=== PATIENT | female | born 1960 | race Hispanic/Latino ===

== ENCOUNTER 2017-10-12 18:30 | Emergency (ER) | payer BC, OTHER ==
[2017-10-12 19:47] LABS: Absolute Lymphocytes (CBC) 1.2 K/uL (0.7-4.9); Absolute Monocytes 0.4 K/uL (0.1-1.3); Basophils % 4.4 % (0-1.3); Eosinophils % 1.2 % (0-4.4); Hematocrit 36.9 % (36.0-45.0); Lymphocytes % 17.4 % (15.3-44.8); MCH 32.1 pg (27.0-35.0); MCV 94.1 fL (80-100); MPV 9.4 fL (7.6-11.3); Monocytes % 5.7 % (3.3-12.3); RBC Red Blood Cell Count 3.92 M/uL (3.86-4.86)
[2017-10-12 19:55] LABS: Potassium 3.2 mEq/L (3.6-5.0)
[2017-10-12 20:01] LABS: Albumin 4.5 g/dL (3.2-5.5); Bilirubin Direct 0.1 mg/dL (0-0.2); Bilirubin Total 0.5 mg/dL (0.3-1.2); Magnesium 1.9 mg/dL (1.8-2.5); Protein, Total 7.5 g/dL (6.0-8.3)
--- NOTE | 2017-10-12 20:13 | RAD REPORT ---
EXAM DESCRIPTION: RAD - Chest Single View - 10/12/2017 8:05 pm CLINICAL HISTORY: Chest pain COMPARISON: None. TECHNIQUE: AP portable chest image was obtained 2003 hours . FINDINGS: Lungs are clear. Heart and vasculature are normal. No measurable pleural effusion and no p neumothorax. No gross bony abnormality seen. No acute aortic findings suspected. IMPRESSION: No acute cardiopulmonary process.
[2017-10-12 21:17] LABS: Urine Blood TRACE (NEG); Urine Glucose NEGATIVE (NEG); Urine Protein NEGATIVE (NEG); Urine Specific Gravity 1.005 (1.005-1.030); Urine pH 5.5 (5.0-7.0)
[2017-10-12] MEDS ORDERED: FAMOTIDINE 20 MG/2 ML VIAL IV ONE (21:42)
--- NOTE | 2017-10-12 22:12 | ER ---
Nurse's Notes [facility] Name: Kim Mayfield Age: 57 yrs Sex: Female : 1960 Arrival Date: 10/12/2017 Time: 18:33 Bed 15 Private MD: out of town, doctor Diagnosis: Chest pain, unspecified Presentation: 10/12 18:39 Presenting complaint: Patient states: Sternal chest pain that started this AM, reports aj radiation to back and jaw. Took Aspirin 81 mg AGING ROOM HAND. Transition of care: patient was not received from another setting of care. Onset of symptoms was October 12, 2017. Care prior to arrival: None. 18:39 Method Of Arrival: Ambulatory aj 18:39 Acuity: FANY 3 aj 18:55 Initial Sepsis Screen: Does the patient meet any 2 criteria? No. Patient's initial hj sepsis screen is negative. Does the patient have a suspected source of infection? No. Patient's initial sepsis screen is negative. Triage Assessment: 18:40 General: Appears in no apparent distress. comfortable, Behavior is calm, cooperative, aj appropriate for age. Pain: Complains of pain in chest Pain radiates to back. Neuro: Level of Consciousness is awake, alert, obeys commands, Oriented to person, place, time, situation, Appropriate for age. Cardiovascular: Reports chest pain. Cardiovascular: Reports nausea, Capillary refill < 3 seconds in bilateral fingers Patient's skin is warm and dry. Respiratory: Airway is patent Respiratory effort is even, unlabored, Respiratory pattern is regular, symmetrical. GI: Reports nausea. Derm: Skin is intact, is healthy with good turgor, Skin is pink, warm \T\ dry. normal. 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 - Social history:: Smoking status: Patient uses tobacco products, denies chronic smoking, but will smoke occasionally. Screenin:55 Abuse screen: Denies threats or abuse. Denies injuries from another. Nutritional em screening: No deficits noted. Tuberculosis screening: No symptoms or risk factors identified. Fall Risk None identified. Assessment: 18:56 Pain: Pain began 1 day ago. hj 18:57 General: Appears in no apparent distress. uncomfortable, Behavior is calm, cooperative, hj appropriate for age. Pain: Complains of pain in chest. Pain: Pain radiates to back. Neuro: Level of Consciousness is awake, alert, obeys commands, Oriented to person, place, time, situation, Appropriate for age Cardiovascular: Chest pain. Respiratory: Airway is patent Respiratory effort is even, unlabored, Respiratory pattern is regular, symmetrical. GI: No signs and/or symptoms were reported involving the gastrointestinal system. : No signs and/or symptoms were reported regarding the genitourinary system. EENT: No signs and/or symptoms were reported regarding the EENT system. Derm: No signs and/or symptoms reported regarding the dermatologic system. Musculoskeletal: No signs and/or symptoms reported regarding the musculoskeletal system. 19:10 Reassessment: Report received from AKANKSHA Wilkins. bs1 19:10 General: Appears in no apparent distress. uncomfortable, Behavior is cooperative, bs1 anxious. Pain: Complains of pain in back and chest Pain radiates to back. Neuro: Level of Consciousness is awake, alert, obeys commands, Oriented to person, place, time, situation, Appropriate for age. Cardiovascular: Reports chest pain, Heart tones S1 S2 present Capillary refill < 3 seconds Patient's skin is warm and dry. Chest pain. Respiratory: Airway is patent Trachea midline Respiratory effort is even, unlabored, Respiratory pattern is regular, symmetrical, Breath sounds are clear bilaterally. GI: No signs and/or symptoms were reported involving the gastrointestinal system. Abdomen is round non-distended. : No signs and/or symptoms were reported regarding the genitourinary system. EENT: No signs and/or symptoms were reported regarding the EENT system. Derm: Skin is intact, Skin is pink, warm \T\ dry. Musculoskeletal: Circulation, motion, and sensation intact. Capillary refill < 3 seconds, Range of motion: intact in all extremities. 20:29 Reassessment: Patient appears in no apparent distress at this time. Patient and/or bs1 family updated on plan of care and expected duration. Pain level reassessed. Patient is alert, oriented x 3, equal unlabored respirations, skin warm/dry/pink. Patient appears anxious on pending results. Informed patient of POC, sending labs and that the Provider will come and talk to patient regarding results. 22:15 Reassessment: Patient appears in no apparent distress at this time. Patient and/or bs1 family updated on plan of care and expected duration. Pain level reassessed. Patient is alert, oriented x 3, equal unlabored respirations, skin warm/dry/pink. No reports of chest pain. Vital Signs: 18:40 BP 118 / 69; Pulse 80; Resp 16; Temp 98.1; Pulse Ox 98% on R/A; Weight 77.11 kg; Height aj 5 ft. 3 in. (160.02 cm); 19:40 BP 127 / 79; Pulse 72; Pulse Ox 99% on R/A; bs1 20:15 BP 119 / 70; Pulse 74; Resp 16; Pulse Ox 99% on R/A; Pain 0/10; bs1 21:15 BP 114 / 74; Pulse 69; Resp 20; Pulse Ox 99% on R/A; bs1 22:27 BP 108 / 68; Pulse 72; Resp 21 S; Temp 97.9(O); Pulse Ox 98% on R/A; Pain 0/10; bs1 18:40 Body Mass Index 30.11 (77.11 kg, 160.02 cm) ED Course: 18:33 Patient arrived in ED. mr 18:33 out of town, doctor is Private Physician. mr 18:40 Triage completed. aj 18:40 Arm band placed on right wrist. Patient placed in waiting room, Patient notified of wait time. 18:42 Franky Grande RN is Primary Nurse. hj 18:47 Carlos John PA is PHCP. jr8 18:47 Zen Ríos MD is Attending Physician. jr8 18:56 decorator lighting fixtures on. Pulse ox on. NIBP on. hj 18:56 Patient maintains SpO2 saturation greater than 95% on room air. hj 18:57 Patient has correct armband on for positive identification. Placed in gown. Bed in low hj position. Call light in reach. Side rails up X 1. Adult w/ patient. 19:18 Inserted saline lock: 20 gauge in right forearm, using aseptic technique. By eugenio Cardona1 Pablo. 19:21 Primary Nurse role handed off by HarjinderFranky allen RN rg2 19:31 Laura Welsh, RN is Primary Nurse. bs1 20:02 X-ray completed. Portable x-ray completed in exam room. Patient tolerated procedure kc2 well. 20:03 XRAY Chest (1 view) In Process Unspecified. EDMS 21:33 EKG done, by ED staff, reviewed by Carlos MONTERO repeat EKG. Repeat lab(s) drawn. by bs1 me, sent to lab. Repeat troponin. 22:26 No provider procedures requiring assistance completed. IV discontinued, bleeding bs1 controlled, No redness/swelling at site. Pressure dressing applied. Administered Medications: 21:47 Drug: Pepcid 20 mg Route: IVP; Site: right antecubital; ea 22:01 Follow up: Response: No adverse reaction bs1 Outcome: 22:11 Discharge ordered by . jr8 22:26 Discharged to home ambulatory, with significant other. bs1 22:26 Condition: stable 22:26 Discharge instructions given to patient, Instructed on discharge instructions, follow up and referral plans. medication usage, Demonstrated understanding of instructions, follow-up care, medications, Prescriptions given X 1, prescription for prednisone 20mg tab po daily for 5 days. 22:31 Patient left the ED. bs1 Signatures: Dispatcher [employer] EDMS Sailaja Tyson rg2 Darleen Ocasio RN RN aj Rivera, Maria Smart, Vernon, INSTRUCTOR OF EDUCATION INSTRUCTOR OF EDUCATION Carlos Hernandez PA PA jr8 Franky Grande, RN oJsi John kc2 Hina Moscoso RN RN ea Salazar, Brittany, AKANKSHA VALE bs1
--- NOTE | 2017-10-12 22:12 | EDPHYS ---
Physician Documentation [facility] Name: Kim Mayfield Age: 57 yrs Sex: Female : 1960 Arrival Date: 10/12/2017 Time: 18:33 Bed 15 Private MD: out of town, doctor ED Physician Zen Ríos HPI: 10/12 20:27 This 57 yrs old Female presents to ER via Ambulatory with complaints of Chest jr8 Pain. 20:27 The patient or guardian reports chest pain that is located primarily in the substernal jr8 area. Onset: acutely, this morning, today. The pain radiates to jaw, back. Associated signs and symptoms: The patient has no apparent associated signs or symptoms. The chest pain is described as burning. Duration: The patient or guardian reports a single episode. Modifying factors: The symptoms are alleviated by nothing. the symptoms are aggravated by nothing. Severity of pain: At its worst the pain was mild in the emergency department the pain is unchanged. The patient has not experienced similar symptoms in the past. The patient has not recently seen a physician. 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 - Social history:: Smoking status: Patient uses tobacco products, denies chronic smoking, but will smoke occasionally. ROS: 20:27 Eyes: Negative for injury, pain, redness, and discharge, ENT: Negative for injury, jr8 pain, and discharge, Neck: Negative for injury, pain, and swelling, Respiratory: Negative for shortness of breath, cough, wheezing, and pleuritic chest pain, Abdomen/GI: Negative for abdominal pain, nausea, vomiting, diarrhea, and constipation, Back: Negative for injury and pain, MS/Extremity: Negative for injury and deformity, Skin: Negative for injury, rash, and discoloration, Neuro: Negative for headache, weakness, numbness, tingling, and seizure. 20:27 Cardiovascular: Positive for chest pain, Negative for edema, orthopnea, palpitations, paroxysmal nocturnal dyspnea. Exam: 20:27 Eyes: Pupils equal round and reactive to light, extra-ocular motions intact. Lids and jr8 lashes normal. Conjunctiva and sclera are non-icteric and not injected. Cornea within normal limits. Periorbital areas with no swelling, redness, or edema. ENT: Nares patent. No nasal discharge, no septal abnormalities noted. Tympanic membranes are normal and external auditory canals are clear. Oropharynx with no redness, swelling, or masses, exudates, or evidence of obstruction, uvula midline. Mucous membranes moist. Neck: Trachea midline, no thyromegaly or masses palpated, and no cervical lymphadenopathy. Supple, full range of motion without nuchal rigidity, or vertebral point tenderness. No Meningismus. Cardiovascular: Regular rate and rhythm with a normal S1 and S2. No gallops, murmurs, or rubs. Normal PMI, no JVD. No pulse deficits. Respiratory: Lungs have equal breath sounds bilaterally, clear to auscultation and percussion. No rales, rhonchi or wheezes noted. No increased work of breathing, no retractions or nasal flaring. Abdomen/GI: Soft, non-tender, with normal bowel sounds. No distension or tympany. No guarding or rebound. No evidence of tenderness throughout. Back: No spinal tenderness. No costovertebral tenderness. Full range of motion. Skin: Warm, dry with normal turgor. Normal color with no rashes, no lesions, and no evidence of cellulitis. MS/ Extremity: Pulses equal, no cyanosis. Neurovascular intact. Full, normal range of motion. Neuro: Awake and alert, GCS 15, oriented to person, place, time, and situation. Cranial nerves II-XII grossly intact. Motor strength 5/5 in all extremities. Sensory grossly intact. Cerebellar exam normal. Normal gait. Vital Signs: 18:40 BP 118 / 69; Pulse 80; Resp 16; Temp 98.1; Pulse Ox 98% on R/A; Weight 77.11 kg; Height aj 5 ft. 3 in. (160.02 cm); 19:40 BP 127 / 79; Pulse 72; Pulse Ox 99% on R/A; bs1 20:15 BP 119 / 70; Pulse 74; Resp 16; Pulse Ox 99% on R/A; Pain 0/10; bs1 21:15 BP 114 / 74; Pulse 69; Resp 20; Pulse Ox 99% on R/A; bs1 22:27 BP 108 / 68; Pulse 72; Resp 21 S; Temp 97.9(O); Pulse Ox 98% on R/A; Pain 0/10; bs1 18:40 Body Mass Index 30.11 (77.11 kg, 160.02 cm) aj MDM: 18:47 Patient medically screened. jr8 22:10 Differential diagnosis: acute myocardial infarction, acute pericarditis, anxiety, chest jr8 wall pain, costochondritis, esophagitis, gastritis, gastroesophageal reflux disease (GERD), pancreatitis, pneumonia, pulmonary embolus, stable angina, thoracic aortic disection, unstable angina. The patient was not given aspirin in the Emergency Department. Patient reports taking aspirin within the past 24 hours. Data reviewed: vital signs, nurses notes, lab test result(s), EKG, radiologic studies, plain films, and as a result, I will discharge patient. Data interpreted: Pulse oximetry: on room air is 99 %. Interpretation: normal. Counseling: I had a detailed discussion with the patient and/or guardian regarding: the historical points, exam findings, and any diagnostic results supporting the discharge/admit diagnosis, lab results, radiology results, the need for outpatient follow up, a digital controls technical officer, a family practitioner, to return to the emergency department if symptoms worsen or persist or if there are any questions or concerns that arise at home. 10/12 19:18 Order name: Urine Dipstick--Ancillary (enter results); Complete Time: 21:29 10/12 19:28 Order name: Basic Metabolic Panel; Complete Time: 20:05 [facility] 10/12 19:28 Order name: BNP; Complete Time: 20:20 [facility] 10/12 19:28 Order name: CBC with Diff; Complete Time: 20:05 [facility] 10/12 19:28 Order name: LFT's; Complete Time: 20:05 [facility] 10/12 19:28 Order name: Magnesium; Complete Time: 20:05 [facility] 10/12 18:52 Order name: EKG; Complete Time: 18:53 10/12 19:28 Order name: EKG - Nurse/Tech; Complete Time: 19:31 [facility] 10/12 19:28 Order name: PT-INR; Complete Time: 20:05 [facility] 10/12 19:28 Order name: Troponin (emerg Dept Use Only); Complete Time: 20:05 10/12 19:28 Order name: XRAY Chest (1 view); Complete Time: 20:20 10/12 19:28 Order name: Cardiac monitoring; Complete Time: :10/12 21:13 Order name: Troponin (emerg Dept Use Only); Complete Time: 22:10 10/12 19:28 Order name: IV Saline Lock; Complete Time: :10/12 19:28 Order name: Labs collected and sent; Complete Time: :10/12 19:28 Order name: O2 Per Protocol; Complete Time: :10/12 19:28 Order name: O2 Sat Monitoring; Complete Time: :10/12 19:28 Order name: Urine Dipstick-Ancillary (obtain specimen); Complete Time: :10/12 21:28 Order name: EKG - Nurse/Tech; Complete Time: 22:01 Administered Medications: 21:47 Drug: Pepcid 20 mg Route: IVP; Site: right antecubital; ea 22:01 Follow up: Response: No adverse reaction bs1 Disposition: 10/12/17 22:11 Discharged to Home. Impression: Chest pain, unspecified. - Condition is Stable. - Discharge Instructions: Nonspecific Chest Pain, Gastroesophageal Reflux Disease, Adult, Aspirin and Your Heart. - Prescriptions for Prednisone 20 mg Oral Tablet - take 1 tablet by ORAL route once daily for 5 days; 5 tablet. - Medication Reconciliation Form, Thank You Letter, Antibiotic Education, Prescription Opioid Use form. - Follow up: Private Physician; When: 2 - 3 days; Reason: Recheck today's complaints, Continuance of care, Re-evaluation by your physician. - Problem is new. - Symptoms have improved. Addendum: 10/16/2017 08:07 Co-signature as Attending Physician, Zen Ríos MD. r n Signatures: Dispatcher [employer] Darleen Stockton RN Zen Johansen MD MD rn Roszak, Josh, KYLAH PA jr8 Hina Moscoso RN RN ea Salazar, Brittany RN RN bs1 Corrections: (The following items were deleted from the chart) 10/12 22:31 22:11 10/12/2017 22:11 Discharged to Home. Impression: Chest pain, unspecified. bs1 Condition is Stable. Forms are Medication Reconciliation Form, Thank You Letter, Antibiotic Education, Prescription Opioid Use. Follow up: Private Physician; When: 2 - 3 days; Reason: Recheck today's complaints, Continuance of care, Re-evaluation by your physician. Problem is new. Symptoms have improved. jr8
--- NOTE | 2017-10-13 06:26 | EKG ---
Test Date: 2017-10-12 Test Time: 18:49:18 Impregnation Operator: LASHONDA MEASUREMENT RESULTS: Intervals: Rate: 74 ME: 164 QRSD: 82 QT: 398 QTc: 441 [place]: P: 50 ME: 164 QRS: -10 T: 12 INTERPRETIVE STATEMENTS: Normal sinus rhythm Cannot rule out Anterior infarct, age undetermined Abnormal ECG No previous ECG available for comparison Electronically Signed On 10-13-17 06:25:52 CDT by Jacob Deleon
--- NOTE | 2017-10-13 15:41 | EKG ---
Test Date: 2017-10-12 Test Time: 21:46:46 Time Analysis Clerk: DMITRY MEASUREMENT RESULTS: Intervals: Rate: 64 MT: 174 QRSD: 84 QT: 418 QTc: 431 [place]: P: 47 MT: 174 QRS: -8 T: 10 INTERPRETIVE STATEMENTS: Normal sinus rhythm Cannot rule out Anterior infarct, age undetermined Abnormal ECG Compared to ECG 10/12/2017 18:49:18 No significant changes Electronically Signed On 10-13-17 15:40:59 CDT by Jacob Deleon
== END 2017-10-12 22:31 | disposition home or self-care (01) ==
LOC: ER 18:30
DX: R07.9 Chest pain, unspecified (principal); E03.9 Hypothyroidism, unspecified; Z72.0 Tobacco use
CPT/HCPCS: 36415; 71045; 80048; 80076; 81003; 83735; 83880; 84484; 85025; 85610; 93005; 96374; 99285